=== PATIENT | female | born 1970 | race Caucasian/White ===

== ENCOUNTER → 2020-08-04 | Outpatient (CLI) | payer BC ==
--- NOTE | 2020-08-04 15:32 | Diagnostic Imaging Report ---
PROCEDURE: Pelvic comp/transvaginal sonogram. TECHNIQUE: Complete transabdominal and transvaginal pelvic ultrasound was performed. In addition, limited pelvic Doppler was performed. INDICATION: Enlarged uterus. FINDINGS: Uterus is enlarged and anteverted measuring 10.6 x 6.5 x 7.5 cm. Abnormal appearance to the endometrium is noted. Endometrium is significantly thickened up to 4.7 cm. Endometrial mass is suspected. There is internal vascularity present. Right ovary measures 1.7 x 2.1 x 2.7 cm and left ovary measures 3.7 x 2.2 x 2.8 cm. There is a 2.9 x 1.9 cm left ovarian cyst. There is blood flow to the ovaries. No free fluid is seen. IMPRESSION: 1. Abnormal endometrium which is markedly thickened and heterogeneous with increased vascularity. Endometrial mass versus large submucosal fibroid is suggested. Tissue sampling would be recommended to exclude endometrial neoplasm. 2. Left ovarian cyst. Dictated by: Dictated on workstation # [id number]
--- NOTE | 2020-08-05 08:48 | Diagnostic Imaging Report ---
INDICATION: Routine screening. Comparison is made with prior mammogram 03/03/2012. 2-D and 3-D bilateral screening mammography was performed with CAD. Scattered fibroglandular densities are identified bilaterally. The parenchymal pattern is stable. No mass or malignant appearing microcalcifications are seen. Axillae are unremarkable. IMPRESSION: BI-RADS Category 1 No mammographic features suspicious for malignancy are parenchymal pattern ACR BI-RADS Category 1: Negative. Result letter will be mailed to the patient. Note: At least 10% of breast cancer is not imaged by mammography. Dictated by: Dictated on workstation # [id number]
== END ==
LOC: RAD 14:00
PROVIDERS: ATTEND Obstetrics & Gynecology
DX: Z12.31 Encounter for screening mammogram for malignant neoplasm of breast (principal); N85.2 Hypertrophy of uterus; N83.202 Unspecified ovarian cyst, left side
CPT/HCPCS: 76830; 76856; 77063; 77067

== ENCOUNTER 2020-08-21 05:29 | Outpatient (RCR) | payer BC ==
[~2020-08-21] VITALS: Ht 172.7 cm; Wt 80.5 kg
[~2020-08-21 05:29] MED LIST: ASCO100T6 PO; ASPI-999 PO; ATOR20TA66 PO; COLLAGEN PO; GLUC-173 PO; INDA2.5T2 PO; LOSA50TA63 PO; NF-VITD400 PO; TUMERIC PO; ZINC30CA PO
== END 2020-08-21 09:09 | disposition home or self-care (01) ==
LOC: PREOP 05:29
PROVIDERS: ATTEND Obstetrics & Gynecology
DX: Z01.812 Encounter for preprocedural laboratory examination (principal); R93.89 Abnormal findings on diagnostic imaging of other specified body structures; Z20.822 Contact with and (suspected) exposure to COVID-19
CPT/HCPCS: 87635

== ENCOUNTER 2020-08-25 06:09 | Day surgery (SDC) | payer BC ==
[2020-08-25] VITALS (8 sets, daily range): BP systolic 120–152; BP diastolic 70–91
[~2020-08-25] VITALS: Ht 172.7 cm; Wt 80.5 kg
[2020-08-25 06:44] LABS: BASOPHILS % (AUTO) 1 % (0-10); EOSINOPHILS # (AUTO) 0.2 10^3/uL (0.0-0.3); EOSINOPHILS % (AUTO) 3 % (0-10); HEMATOCRIT 44 % (35-52); HEMOGLOBIN 14.9 g/dL (11.5-16.0); LYMPHOCYTES # (AUTO) 1.9 10^3/uL (1.0-4.0); LYMPHOCYTES % (AUTO) 36 % (12-44); MEAN CORPUSCULAR HEMOGLOBIN 30 pg (25-34); MEAN CORPUSCULAR HGB CONC 34 g/dL (32-36); MEAN CORPUSCULAR VOLUME 88 fL (80-99); MEAN PLATELET VOLUME 10.1 fL (9.0-12.2); MONOCYTES # (AUTO) 0.5 10^3/uL (0.0-1.0); MONOCYTES % (AUTO) 9 % (0-12); NEUTROPHILS # (AUTO) 2.8 10^3/uL (1.8-7.8); NEUTROPHILS % (AUTO) 51 % (42-75); PLATELET COUNT 240 10^3/uL (130-400); WHITE BLOOD COUNT 5.4 10^3/uL (4.3-11.0)
[2020-08-25] MEDS ORDERED: BUPIVACAINE 0.25% 30 ML (SENSORCAINE) VIAL ONE (06:54)
[2020-08-25] MEDS: LACTATED RINGERS 1,000 ML IV PRN ×2 (06:58→07:40)
[2020-08-25] MEDS ORDERED: MIDAZOLAM 2 MG/2 ML (VERSED) VIAL ONE (07:01)
[2020-08-25] MEDS ORDERED: fentaNYL INJECTION 100 MCG/2 ML AMP ONE (07:02)
[2020-08-25] MEDS ORDERED: ONDANSETRON 4 MG/2 ML (SDV) Z0FRAN ONE (07:06)
[2020-08-25] MEDS ORDERED: LIDOCAINE PF 2% 5 ML (XYLOCAINE) VIAL ONE (07:06)
[2020-08-25] MEDS ORDERED: SEVOFLURANE (ULTANE) 15 ML INHAL SOLN ONE ×2 (07:06→07:50)
[2020-08-25] MEDS ORDERED: proPOfol 200 MG/20 ML (DIPRIVAN) VIAL IV ONE (07:06)
--- NOTE | 2020-08-25 07:16 | Progress Note-Pre Operative ---
Pre-Operative Progress Note H&P Reviewed The H&P was reviewed, patient examined and no changes noted. Date Seen by Provider: Aug 25, 2020 Time Seen by Provider: 07:05 Date H&P Reviewed: Aug 25, 2020 Time H&P Reviewed: 07:05 Pre-Operative Diagnosis: AUB, Thickened Endometrium FITO FERNANDO DO Aug 25, 2020 07:16
--- NOTE | 2020-08-25 07:20 | Discharge Inst-Women's Service ---
Discharge Inst-Women's Serv Depart Medication/Instructions New, Converted or Re-Newed RX: RX on Chart Final Diagnosis s/p D and C Problems Reviewed?: Yes Consults/Follow Up Additional Follow Up: Yes Orders/Referrals Dr. Fernando in 7-10 days Activity Activity: Activity as Tolerated Driving Instructions: No Driving for 1 Week NO SMOKING: NO SMOKING Nothing Inside Vagina: No Douching, No [place], No Tampons Diet Discharge Diet: No Restrictions Symptoms to Report to : Bleeding Excessive, Pain Increased, Fever Over 101 Degrees F, Vaginal Bleeding Increase, Questions/Concerns For Any Problems or Questions: Contact Your Physician FITO FERNANDO DO Aug 25, 2020 07:20
[2020-08-25] MEDS ORDERED: ONDANSETRON 4 MG/2 ML (SDV) Z0FRAN IVP PRN (07:30)
[2020-08-25] MEDS ORDERED: HYDROcodone/APAP 5 MG/325 MG (LORTAB) TAB PO PRN (07:30)
[2020-08-25] MEDS ORDERED: D5 LR IV SOLUTION 1,000 ML IV SCH (07:30)
[2020-08-25] MEDS ORDERED: KETOROLAC 30 MG/ML VIAL IVP ONE (07:30)
[2020-08-25] MEDS ORDERED: KETOROLAC 30 MG/ML VIAL ONE (07:34)
--- NOTE | 2020-08-25 08:34 | Anesthesia-General Post-Op ---
General Patient Condition Mental Status/LOC: Same as Preop Cardiovascular: Satisfactory Nausea/Vomiting: Absent Respiratory: Satisfactory Pain: Controlled Complications: Absent Post Op Complications Complications None Follow Up Care/Instructions Patient Instructions None needed. Anesthesia/Patient Condition Patient Condition Patient is doing well, no complaints, stable vital signs, no apparent adverse anesthesia problems. No complications reported per nursing. DEBORA LYNN CRNA Aug 25, 2020 08:34
--- NOTE | 2020-08-25 09:02 | OPERATIVE REPORT ---
DATE OF SERVICE: PREOPERATIVE DIAGNOSES: 1. A 50-year-old female with abnormal uterine bleeding. 2. Thickened endometrium. POSTOPERATIVE DIAGNOSES: 1. A 50-year-old female with abnormal uterine bleeding. 2. Thickened endometrium. PROCEDURE PERFORMED: D and C with hysteroscopy. SURGEON: Fito Fernando DO. ANESTHESIA: LMA. ESTIMATED BLOOD LOSS: Minimal. URINE OUTPUT: 100 mL drained at the start of the procedure. FLUIDS: 1000 mL of lactated Ringer's solution. FINDINGS: A grossly normal appearing external female genitalia with a grade II to III rectocele noted externally, normal appearing endometrium as far as age appropriate endometrial atrophy. However, there are several submucosal fibroids that are visualized on hysteroscopic exam. SPECIMEN SENT: Endometrial curettings. INDICATIONS FOR PROCEDURE: This 50-year-old female is a patient, who had sought annual well woman care with my practice. On her annual bimanual examination, the uterus was palpated and enlarged. Ultrasound was ordered and thickened endometrium was noted as well as multiple fibroids within the uterus. I discussed with the patient proceeding with D and C due to her age and risk factors involved. The risks of the procedure were discussed with the patient in detail. After all of her questions were answered with her present, consent was obtained in the preoperative area and the patient was taken to the operating room. OPERATIVE REPORT IN DETAIL: Once in the operating room, anesthesia was found to be adequate. She was placed in a dorsal lithotomy position and prepped and draped in a normal sterile fashion. A timeout was performed. Straight catheterization was performed as well. A weighted speculum was inserted into the patient's vagina. The anterior lip of the cervix was then grasped with a long Allis clamp. The uterine cavity depth was sounded and found to be approximately 8 cm. I then gently dilated the cervix using Hegar dilators to allow placement of the hysteroscope. Once the hysteroscope was placed in the endometrial cavity, the endometrium was distended using normal saline as my visual medium. I was able to visualize multiple submucosal fibroids. The tubal ostia bilaterally were identified. There was no evidence of thickened endometrial tissue, endometrial hypertrophy or any concerning malignant process; however, there are submucosal fibroids that are identified, at least four that can be seen with the hysteroscope on this evaluation, after which I removed the hysteroscope and proceeded with a gentle curettage of the endometrium and tissue was collected and sent as endometrial curetting, after which there was no active bleeding noted from any of my dissection planes. To control postoperative pain, I performed a paracervical block at 3 and 9 o'clock positions on the cervix. Care was taken to aspirate before injecting, 5 mL of 0.25% Marcaine are injected to each site after which all instruments were removed from the patient's vagina. The patient tolerated the procedure well and sent to the recovery in a stable condition. Lap and sponge counts were correct at the end of the procedure. Instrument counts correct as well. Job ID: [id number] DocumentID: [id number] Dictated Date: 08/25/2020 08:43:26 Field Merchandiser Date: 08/25/2020 09:02:05 Dictated By: FITO FERNANDO DO
== END 2020-08-25 09:30 | disposition home or self-care (01) ==
LOC: SDC 06:09
PROVIDERS: ATTEND Obstetrics & Gynecology
DX: R93.89 Abnormal findings on diagnostic imaging of other specified body structures (principal); N85.2 Hypertrophy of uterus; I10 Essential (primary) hypertension; Z79.899 Other long term (current) drug therapy; Z79.82 Long term (current) use of aspirin; Z83.3 Family history of diabetes mellitus
CPT/HCPCS: 36415; 84703; 85025; 86850; 86900; 86901; 87081; 88305

== ENCOUNTER 2020-09-18 05:42 | Outpatient (RCR) | payer BC ==
[~2020-09-18] VITALS: Ht 170.2 cm; Wt 82.3 kg
[~2020-09-18 05:42] MED LIST changes: +MELA1TAB20 PO
== END 2020-09-18 14:37 | disposition home or self-care (01) ==
LOC: PREOP 05:42
PROVIDERS: ATTEND Obstetrics & Gynecology
DX: Z01.812 Encounter for preprocedural laboratory examination (principal); N85.00 Endometrial hyperplasia, unspecified; N93.9 Abnormal uterine and vaginal bleeding, unspecified; Z20.822 Contact with and (suspected) exposure to COVID-19
CPT/HCPCS: 87635

== ENCOUNTER 2020-09-22 07:30 | Day surgery (SDC) | payer BC ==
[~2020-09-22] VITALS: Ht 170.2 cm; Wt 82.3 kg
[2020-09-22] VITALS (11 sets, daily range): BP systolic 125–161; BP diastolic 79–100
[2020-09-22] MEDS ORDERED: ceFAZolin 2 GM IV Premixed 50 ML IV ONE (07:45)
[2020-09-22] MEDS ORDERED: LACTATED RINGERS 1,000 ML IV ONE (07:45)
[2020-09-22] MEDS ORDERED: metroNIDAZOLE 500MG/100ML IVPB 100 ML IV ONE (07:45)
[2020-09-22] MEDS ORDERED: MIDAZOLAM 2 MG/2 ML (VERSED) VIAL IV ONE (08:00)
[2020-09-22] MEDS ORDERED: ONDANSETRON 4 MG/2 ML (SDV) Z0FRAN IV ONE (08:00)
[2020-09-22 08:24] LABS: BASOPHILS % (AUTO) 0 % (0-10); EOSINOPHILS # (AUTO) 0.1 10^3/uL (0.0-0.3); EOSINOPHILS % (AUTO) 1 % (0-10); HEMATOCRIT 44 % (35-52); HEMOGLOBIN 14.7 g/dL (11.5-16.0); LYMPHOCYTES # (AUTO) 1.5 10^3/uL (1.0-4.0); LYMPHOCYTES % (AUTO) 29 % (12-44); MEAN CORPUSCULAR HEMOGLOBIN 29 pg (25-34); MEAN CORPUSCULAR HGB CONC 34 g/dL (32-36); MEAN CORPUSCULAR VOLUME 87 fL (80-99); MEAN PLATELET VOLUME 10.1 fL (9.0-12.2); MONOCYTES # (AUTO) 0.5 10^3/uL (0.0-1.0); MONOCYTES % (AUTO) 9 % (0-12); NEUTROPHILS # (AUTO) 3.1 10^3/uL (1.8-7.8); NEUTROPHILS % (AUTO) 60 % (42-75); PLATELET COUNT 278 10^3/uL (130-400); WHITE BLOOD COUNT 5.2 10^3/uL (4.3-11.0)
[2020-09-22] MEDS: LACTATED RINGERS 1,000 ML IV PRN ×2 (09:07→10:20)
[2020-09-22] MEDS ORDERED: ONDANSETRON 4 MG/2 ML (SDV) Z0FRAN ONE ×2 (09:16→11:40)
[2020-09-22] MEDS ORDERED: ROCURONIUM 10 MG/ML 5 ML SYRINGE IV ONE (09:16)
[2020-09-22] MEDS ORDERED: LIDOCAINE PF 2% 5 ML (XYLOCAINE) VIAL ONE (09:16)
[2020-09-22] MEDS ORDERED: SEVOFLURANE (ULTANE) 15 ML INHAL SOLN ONE ×4 (09:16→10:59)
[2020-09-22] MEDS ORDERED: proPOfol 200 MG/20 ML (DIPRIVAN) VIAL IV ONE (09:16)
--- NOTE | 2020-09-22 09:16 | Progress Note-Pre Operative ---
Pre-Operative Progress Note H&P Reviewed The H&P was reviewed, patient examined and no changes noted. Date Seen by Provider: Sep 22, 2020 Time Seen by Provider: 09:10 Date H&P Reviewed: Sep 22, 2020 Time H&P Reviewed: 09:10 Pre-Operative Diagnosis: Endometrial hyperplasia FITO FERNANDO DO Sep 22, 2020 09:16
[2020-09-22] MEDS ORDERED: fentaNYL INJECTION 100 MCG/2 ML AMP ONE ×2 (09:17→11:02)
[2020-09-22] MEDS ORDERED: MIDAZOLAM 2 MG/2 ML (VERSED) VIAL ONE (09:17)
--- NOTE | 2020-09-22 09:20 | Discharge Inst-Women's Service ---
Discharge Inst-Women's Serv Depart Medication/Instructions New, Converted or Re-Newed RX: RX on Chart Problems Reviewed?: Yes Consults/Follow Up Additional Follow Up: Yes Orders/Referrals Dr. Wallace in 7-10 days and in 8 weeks Activity Activity: Activity as Tolerated Driving Instructions: No Driving for 1 Week NO SMOKING: NO SMOKING Nothing Inside Vagina: No Douching, No [place], No Tampons Diet Discharge Diet: No Restrictions Symptoms to Report to : Bleeding Excessive, Pain Increased, Fever Over 101 Degrees F, Vaginal Bleeding Increase, Questions/Concerns For Any Problems or Questions: Contact Your Physician Skin/Wound Care Infection Signs and Symptoms: Increased Redness, Foul Odor of Wound, Increased Drainage, Skin Itchy or Has a Rash, Increased Swelling, Temperature Above 101 F Operative Area Clean and Dry: Keep Incision Clean/Dry Stitches/Kartik/Dermabond: Dermabond, Care of Stitches Bathing Instructions: FITO Mack DO Sep 22, 2020 09:20
[2020-09-22] MEDS ORDERED: DCS100C PO (09:21)
[2020-09-22] MEDS ORDERED: HYDR-34 PO (09:21)
[2020-09-22] MEDS ORDERED: IBUP-844 PO (09:21)
[2020-09-22] MEDS ORDERED: DOCUSATE SODIUM 100 MG (COLACE) CAP PO PRN (09:30)
[2020-09-22] MEDS ORDERED: LACTATED RINGERS 1,000 ML IV SCH (09:30)
[2020-09-22] MEDS ORDERED: ANTACID SUSP 30 ML UDC (MYLANTA) PO PRN (09:30)
[2020-09-22] MEDS ORDERED: ZOLPIDEM 5 MG (AMBIEN) TAB PO PRN (09:30)
[2020-09-22] MEDS ORDERED: CHLORASEPTIC LOZENGE MM PRN (09:30)
[2020-09-22] MEDS ORDERED: SIMETHICONE 80 MG (MYLICON) CHEW PO PRN (09:30)
[2020-09-22] MEDS ORDERED: ONDANSETRON 4 MG/2 ML (SDV) Z0FRAN IV PRN (09:30)
[2020-09-22] MEDS ORDERED: HYDROcodone/APAP 7.5 MG/325 MG (LORTAB, LORCET PLUS) TABLET PO PRN (09:30)
[2020-09-22] MEDS ORDERED: BUPIVACAINE 0.25% 30 ML (SENSORCAINE) VIAL ONE (09:31)
[2020-09-22] MEDS ORDERED: KETOROLAC 30 MG/ML VIAL ONE (11:26)
--- NOTE | 2020-09-22 11:29 | Anesthesia-General Post-Op ---
General Patient Condition Mental Status/LOC: Same as Preop Cardiovascular: Satisfactory Nausea/Vomiting: Absent Respiratory: Satisfactory Pain: Controlled Complications: Absent Post Op Complications Complications None Follow Up Care/Instructions Patient Instructions None needed. Anesthesia/Patient Condition Patient Condition Patient is doing well, no complaints, stable vital signs, no apparent adverse anesthesia problems. No complications reported per nursing. FRANK WONG CRNA Sep 22, 2020 11:29
[2020-09-22] MEDS ORDERED: fentaNYL INJECTION 100 MCG/2 ML AMP IVP ONE (11:30)
[2020-09-22] MEDS ORDERED: HYDROmorphone 2 MG/ML VIAL (DILAUDID) IV ONE ×2 (11:30→13:30)
[2020-09-22] MEDS ORDERED: morphine INJ 10 MG/ML 1ML (SYR OR VIAL) IVP ONE (11:30)
[2020-09-22] MEDS ORDERED: MEPERIDINE (DEMEROL) INJ 50 MG/ML IVP ONE (11:30)
[2020-09-22] MEDS ORDERED: ONDANSETRON 4 MG/2 ML (SDV) Z0FRAN IVP PRN (11:30)
[2020-09-22] MEDS ORDERED: PROMETHAZINE INJ 25 MG/ML (PHENERGAN) AMP IVP ONE (11:30)
[2020-09-22] MEDS: KETOROLAC 30 MG/ML VIAL IV PRN ×2 (11:34→18:03)
[2020-09-22] MEDS ORDERED: morphine INJ 10 MG/ML 1ML (SYR OR VIAL) ONE (11:40)
[2020-09-22] MEDS ORDERED: HYDROmorphone 2 MG/ML VIAL (DILAUDID) ONE (12:03)
--- NOTE | 2020-09-22 14:55 | OPERATIVE REPORT ---
DATE OF SERVICE: PREOPERATIVE DIAGNOSES: 1. A 50-year-old female with fibroid uterus. 2. Endometrial hyperplasia. 3. Abnormal uterine bleeding. POSTOPERATIVE DIAGNOSES: 1. A 50-year-old female with fibroid uterus. 2. Endometrial hyperplasia. 3. Abnormal uterine bleeding. PROCEDURE: Robotic-assisted total laparoscopic hysterectomy with bilateral salpingo-oophorectomy weighing 383 grams. SURGEON: Cayden Fernando DO REHAB OFFICE COORDINATOR: Raina Strauss DNP, who was necessary for manipulation and retraction throughout the procedure. ANESTHESIA: General endotracheal. ESTIMATED BLOOD LOSS: Minimal. URINE OUTPUT: 100 mL clear at the end of the procedure. FLUIDS: 1200 mL of lactated Ringer's solution. FINDINGS: A bulky uterus consistent with intramural fibroids, grossly normal appearing bilateral fallopian tubes and ovaries. SPECIMEN SENT: Uterus, bilateral fallopian tubes and ovaries. INDICATIONS FOR PROCEDURE: This 50-year-old female is a patient, who had seen me earlier this year for a routine annual well woman visit. Her uterus was noted to be bulky on examination and followup ultrasound was ordered. There was significantly thickened endometrium, which prompted me to do endometrial sampling in the form of D and C. This revealed endometrial polyp with significant hyperplasia involved with the polyp. I discussed with the patient long-term risk of this being recurrent as well as ongoing issues with uterine fibroid and she wishes to proceed with more definitive and aggressive measures of dealing with this. The risk of the hysterectomy was reviewed with the patient and her in detail including risk of bleeding, infection, damage to surrounding structures including, but not limited to bowel, bladder, ureter, kidneys, possible need for operation, postoperative complications that may occur, recovery timeframe, risk from anesthesia and even . After everything was discussed with the patient in detail and all of her questions were answered and her 's questions were answered, consent was obtained, the patient was taken to the operating room. OPERATIVE REPORT IN DETAIL: Once in the operating room, general anesthesia was found to be adequate, placed in dorsal lithotomy position, prepped and draped in normal sterile fashion. A timeout was performed and a Hernandez catheter was placed using sterile technique. A weighted speculum inserted to the patient's vagina. A right angle retractor was used to visualize the cervix, which was grasped at 12 o'clock position using a long Allis clamp and 0 Vicryl suture was then placed anterior lip of the cervix using my retraction point, the Allis clamp was removed. The uterine cavity depth was then sounded and found to be 8 cm. I selected an 8 cm Meghan uterine manipulator tip and a 4 cm colpotomy ring. I advanced the manipulator tip into the uterus and inflate the manipulator tip balloon and advanced colpotomy ring around the vaginal fornix. I then removed all the other instruments from the patient's vagina performed change of gloves obtained my attention to the abdomen where supraumbilically I infiltrated this area using 0.25% Marcaine and make an 8 mm incision with a knife and directed Veress needle through the incision, intraperitoneal placement was confirmed using saline drop test. Opening pressure of 2 mmHg was noted, proceeded to maximum pressure of 15 mmHg, at which point, I removed the Veress needle and introduced an 8 mm laparoscopic da Mehrdad camera trocar. Once this was in place, I am able to confirm intraperitoneal placement using the da Mehrdad laparoscope. A brief scan of the upper abdominal anatomy appears grossly normal. There was no evidence of damage from entry site. I then placed the patient in steep Trendelenburg and placed two lateral trocars approximately 8 cm lateral to my supraumbilical trocar site. Once these trocars were in place, I bring in the da Mehrdad robot and docked in appropriate fashion, placed on the da Mehrdad vessel sealer in the left hand and monopolar vincenzo in the right hand performed the following dissection bilaterally. Starting at the infundibulopelvic ligament, which I bipolar cauterized and transect using the da Mehrdad vessel sealer. I then grasped the round ligament, which I bipolar cauterized and transected using vessel sealer. I then grasped the broad ligament and sealed and transected this all the way down to the lower uterine segment, at which point, I the anterior leaflet and the posterior leaflet of the broad ligament. Anterior leaflet was taken around the anterior vaginal fornix. Posterior leaflets was taken around the posterior vaginal fornix. This allows me to skeletonize the uterine vessels, which I bipolar cauterized and transect using the vessel sealer. I then created a colpotomy at 12 o'clock position, took this circumferentially around the vaginal fornix amputating the cervix away from the vagina. The entire specimen was then removed through the vagina. At which point, I closed the lateral vaginal apices of the vaginal cuff using 2-0 Vicryl suture in a [id number] fashion, colposuspending them to the uterosacral ligaments. I then closed the remainder of the vaginal cuff using 2-0 V-Loc in a running fashion, after which there was no active bleeding noted from any of my dissection planes. I then undocked the da Mehrdad robot and proceeded with remainder of the case laparoscopically. I copiously irrigated the pelvis using normal saline. Once again, there was no active bleeding noted from any of my dissection planes. I placed FloSeal hemostatic agent over all my planes of dissection to ensure excellent postoperative hemostasis. I then had the patient taken out of steep Trendelenburg where I removed the lateral trocars under direct visualization of laparoscope. The supraumbilical trocar was left in place to release insufflation and to introduce 10 mL of 0.25% Marcaine into the peritoneal cavity for postoperative pain management. I then removed this trocar as well. The skin reapproximated using 4-0 Monocryl in interrupted subcuticular stitches. Dermabond was applied to incision and Band-Aids were placed over the incisions as well. The patient tolerated the procedure well and sent to recovery in stable condition. Lap and sponge counts were correct at the end of the procedure. Instrument counts correct as well. Hernandez catheter was left in place. Two grams of Ancef, 500 mg of Flagyl were given preoperatively for infection prophylaxis. Job ID: [id number] DocumentID: [id number] Dictated Date: 09/22/2020 11:40:29 Mud Tank Operator Date: 09/22/2020 14:54:30 Dictated By: CAYDEN FERNANDO DO
[2020-09-23] MEDS ORDERED: IBUPROFEN 600 MG (MOTRIN) TAB PO SCH (02:00)
== END 2020-09-22 18:12 | disposition home or self-care (01) ==
LOC: SDC 07:30 → WS 11:49 → SDC 18:12
PROVIDERS: ATTEND Obstetrics & Gynecology
DX: D25.1 Intramural leiomyoma of uterus (principal); D25.0 Submucous leiomyoma of uterus; N83.8 Other noninflammatory disorders of ovary, fallopian tube and broad ligament; N85.00 Endometrial hyperplasia, unspecified; N83.202 Unspecified ovarian cyst, left side; I10 Essential (primary) hypertension; F17.210 Nicotine dependence, cigarettes, uncomplicated; Z79.82 Long term (current) use of aspirin; Z79.899 Other long term (current) drug therapy; Z83.3 Family history of diabetes mellitus
CPT/HCPCS: 36415; 84703; 85025; 86850; 86900; 86901; 87081

== ENCOUNTER 2021-07-16 13:38 | Outpatient (RCR) | payer BC ==
[~2021-07-16 13:38] MED LIST changes: +DOCU-239 PO; +HYDR-34 PO; +IBUP-844 PO
== END 2021-07-16 15:43 | disposition home or self-care (01) ==
PROVIDERS: ATTEND Nurse Practitioner Women's Health
DX: R32 Unspecified urinary incontinence (principal); I10 Essential (primary) hypertension